=== PATIENT | female | born 1960 | race Caucasian/White ===

== ENCOUNTER 2024-01-12 10:23 | Observation (INO) | payer OTHER, BC ==
[2024-01-12 11:57] LABS: BASO % 0.5 % (0-2.0); EOS % 1.2 % (0-4.5); HEMATOCRIT 39.2 % (32.4-45.2); HEMOGLOBIN 13.4 GM/dL (10.7-15.3); LYMPH % 24.2 % (8-40); MCH 31.1 pg (25.7-33.7); MCHC 34.1 g/dl (32.0-36.0); MEAN PLT VOLUME 7.9 fl (7.5-11.1); MONO % 6.4 % (3.8-10.2); NEUT % 67.7 % (42.8-82.8); PLATELET COUNT 144 10^3/uL (134-434); RBC 4.31 M/mm3 (3.60-5.2); WHITE BLOOD COUNT 4.8 K/mm3 (4.0-10.0)
[2024-01-12 11:59] LABS: EPI CELLS 14 /uL (0-25.1); HYALINE CASTS 0 /uL (0-3.1); URINE APPEARANCE CLEAR; URINE BACTERIA 22 /uL (0-1359); URINE BILIRUBIN NEGATIVE (NEGATIVE); URINE COLOR YELLOW; URINE GLUCOSE (UA) NEGATIVE (NEGATIVE); URINE KETONE NEGATIVE (NEGATIVE); URINE LEUK ESTERASE NEGATIVE (NEGATIVE); URINE NITRITE NEGATIVE (NEGATIVE); URINE PROTEIN NEGATIVE (NEGATIVE); URINE RBC 89 /uL (0-23.9); URINE UROBILINOGEN 0.2 mg/dL (0.2-1.0); URINE WBC 10 /uL (0-25.8)
[2024-01-12 12:03] LABS: INR 1.1 (0.83-1.09); PROTHROMBIN TIME (PATIENT) 12.7 SEC (9.7-13.0)
[2024-01-12 12:05] LABS: ACTIVATED PTT 32.4 SECONDS (25.2-36.5)
[2024-01-12 12:15] LABS: POTASSIUM 3.9 mmol/L (3.5-5.1)
[2024-01-12 12:17] LABS: CALCIUM 9.1 mg/dL (8.5-10.1)
[2024-01-12 12:18] LABS: ALBUMIN 3.9 g/dl (3.4-5.0); BLOOD UREA NITROGEN 18.4 mg/dL (7-18)
[2024-01-12 12:20] LABS: CHOLESTEROL 218 mg/dL (50-200)
[2024-01-12 12:21] LABS: CREATININE 0.8 mg/dL (0.55-1.3); LDL CHOLESTEROL (ONLY SJRH) 140 mg/dL (5-100)
[2024-01-12 12:22] LABS: BILIRUBIN,TOTAL 0.8 mg/dL (0.2-1)
[2024-01-12 12:23] LABS: HDL CHOLESTEROL 60 mg/dL (40-60); TOT PROT 7.5 g/dl (6.4-8.2)
[2024-01-12 18:49] VITALS: BMI 39.4
[2024-01-12] MEDS: MELATONIN 5 MG TABLETS PO ONE (21:35)
[2024-01-13 10:20] VITALS: TEMP 97.9
[2024-01-13 17:25] VITALS: BP 110/51; PULSE 85; RESP 18
[2024-01-13] MEDS ORDERED: ATORVASTATIN CA 40 MG TABLET (FP) PO SCH (22:00)
== END 2024-01-13 17:28 | disposition home or self-care (01) ==
LOC: JER 10:23 → JERBED 13:06 → J4W 18:23
PROVIDERS: ADMIT Internal Medicine; ATTEND Internal Medicine
PROC: 3E023NZ Introduction of Analgesics, Hypnotics, Sedatives into Muscle, Percutaneous Approach (ICD-10-PCS; principal; 2024-01-12)
DX: G45.4 Transient global amnesia (principal); E87.8 Other disorders of electrolyte and fluid balance, not elsewhere classified; E03.9 Hypothyroidism, unspecified; Z87.891 Personal history of nicotine dependence
CPT/HCPCS: 36415; 70450-TC; 70496-TC; 70498-TC; 70551-TC; 71045-TC-FY; 80053; 80061; 81003; 82550; 82962; 84484; 85025; 85610; 85730; 86850; 86870; 86880; 86900; 86901; 86902; 87086; 93005; 93010; 99285-25; G0378